=== PATIENT | female | born 1960 | race Caucasian/White ===

== ENCOUNTER 2017-11-08 01:11 | Emergency (ER) | payer BC ==
--- NOTE | 2017-11-08 01:37 | EDM.PDOC ---
ED HPI GENERAL MEDICAL PROBLEM - General Chief Complaint: Abdominal Pain Stated Complaint: RIGHT SIDE PAIN Time Seen by Provider: 11/08/17 01:36 - History of Present Illness INITIAL COMMENTS - FREE TEXT/NARRATIVE: HISTORY AND PHYSICAL: History of present illness: The patient is a 49-year-old female with a history of hypertension and a history of one prior kidney stone that required surgical removal and who presents with complaints of right-sided abdominal and right flank pain that started 2 hours ago associated with nausea. Patient states that she had a completely normal day yesterday with no systemic complaints and the pain came on suddenly and it was in her right side of her abdomen and right flank area. It is coming and going in intensity and is associated with the nausea but no vomiting or diarrhea. She has no hematuria dysuria frequency no fevers and took no medications prior to coming here. She says it does feel similar to her prior kidney stone but this came on more suddenly than the one in the past. The patient does not live here locally and is visiting family. Patient did not take any medication for pain or nausea prior to coming to the ER Review of systems: As per history of present illness and below otherwise all systems reviewed and negative. Past medical history: As per history of present illness and as reviewed below otherwise noncontributory. Surgical history: As per history of present illness and as reviewed below otherwise noncontributory. Social history: No reported history of drug or alcohol abuse. Family history: As per history of present illness and as reviewed below otherwise noncontributory. Physical exam: Gen.: Well-developed well-nourished female who is nontoxic but looks somewhat uncomfortable in the room. She is able to move easily without distress and vital signs have been reviewed by me HEENT: Atraumatic, normocephalic, negative for conjunctival pallor or scleral icterus, mucous membranes moist, throat clear, neck supple, nontender, trachea midline. Lungs: Clear to auscultation, breath sounds equal bilaterally, chest nontender. Heart: S1S2, regular rate and rhythm no overt murmurs Abdomen: Soft, nondistended, nontender. On palpation I'm unable to reproduce the pain on the right side and bowel sounds are slightly hypoactive. Is no rebound or guarding Negative for masses or hepatosplenomegaly. Negative for costovertebral tenderness. Pelvis: Stable nontender. Genitourinary: Deferred. Rectal: Deferred. Extremities: Atraumatic, negative for cords or calf pain. Neurovascular unremarkable. Neuro: Awake, alert, oriented. Cranial nerves II through XII unremarkable. Cerebellum unremarkable. Motor and sensory unremarkable throughout. Exam nonfocal. Diagnostics: CBC CMP UA urine culture CT scan of the abdomen and pelvis Therapeutics: IV fluids Toradol Zofran Dilaudid Flomax Cipro Patient feels much improved and I discussed all testing results with the patient and at bedside. She is aware of the other kidney stones are present in bilateral kidneys As the patient does not live here we will give her copy of the CAT scan on disc so she can follow-up with her urologist at home. I will give her a dose of Flomax and Cipro here. She would like [facility] for the Varney and prescriptions for the remainder of the medications I'm going to give her. I will give her urine strainers and have advised on reasons to return to the ED and necessitated need for follow-up with a urologist either here or at home. Impression: Right ureterolithiasis Definitive disposition and diagnosis as appropriate pending reevaluation and review of above. abdominal pain Pain Score (Numeric/FACES): 7 - Related Data Allergies Allergy/AdvReac Type Severity Reaction Status Date / Time sulfamethoxazole Allergy Hives Verified 11/08/17 01:30 [From ] trimethoprim [From ] Allergy Hives Verified 11/08/17 01:30 Home Meds: Home Meds Metoprolol Succinate 1 tab PO DAILY 11/08/17 [History] Multivitamin [Multivitamins] 1 each PO DAILY 11/08/17 [History] Past Medical History HEENT History: Reports: None Cardiovascular History: Reports: Hypertension Respiratory History: Reports: None Gastrointestinal History: Reports: None Genitourinary History: Reports: Renal Calculus [employer] History: Reports: Musculoskeletal History: Reports: None Neurological History: Reports: None Psychiatric History: Reports: None Endocrine/Metabolic History: Reports: None Hematologic History: Reports: None Immunologic History: Reports: None Oncologic (Cancer) History: Reports: None Dermatologic History: Reports: None - Infectious Disease History Infectious Disease History: Reports: Chicken Pox - Past Surgical History Head Surgeries/Procedures: Reports: None Female Surgical History: Reports: Hysterectomy Social & Family History - Family History Family Medical History: Noncontributory - Tobacco Use Smoking Status *Q: Never Smoker - Caffeine Use Caffeine Use: Reports: Soda - Recreational Drug Use Recreational Drug Use: No ED ROS GENERAL - Review of Systems Review Of Systems: ROS reveals no pertinent complaints other than HPI. ED EXAM, GENERAL - Physical Exam Exam: See Below (See dictation) Course - Vital Signs Last Recorded V/S: Last Vital Signs Temp 36.4 C 11/08/17 01:31 Pulse 85 11/08/17 01:31 Resp 18 11/08/17 01:31 BP 170/85 H 11/08/17 01:31 Pulse Ox 98 11/08/17 01:31 - Orders/Labs/Meds Orders: Active Orders 24 hr Category Date Time Status Communication Order [RC] STAT Care 11/08/17 03:51 Ordered Abdomen Pelvis wo Cont [CT] Stat Exams 11/08/17 01:43 Taken CULTURE URINE [RM] Stat Lab 11/08/17 01:45 Received Ciprofloxacin [Ciprofloxacin HCl] Med 11/08/17 03:50 Once 500 mg PO ONETIME ONE Sodium Chloride 0.9% [Saline Flush] Med 11/08/17 01:43 Active 10 ml FLUSH ASDIRECTED PRN Sodium Chloride 0.9% [Saline Flush] Med 11/08/17 01:43 Active 2.5 ml FLUSH ASDIRECTED PRN Tamsulosin [Flomax] Med 11/08/17 03:50 Once 0.4 mg PO ONETIME ONE Saline Lock Insert [OM.PC] Stat Oth 11/08/17 01:43 Ordered Medication Orders Ciprofloxacin (Ciprofloxacin Hcl) 500 mg PO ONETIME ONE Stop: 11/08/17 03:51 Sodium Chloride (Saline Flush) 10 ml FLUSH ASDIRECTED PRN PRN Reason: Keep Vein Open Sodium Chloride (Saline Flush) 2.5 ml FLUSH ASDIRECTED PRN PRN Reason: Keep Vein Open Tamsulosin HCl (Flomax) 0.4 mg PO ONETIME ONE Stop: 11/08/17 03:51 Labs: Laboratory Tests 11/08/17 11/08/17 11/08/17 Range/Units 01:45 01:52 01:52 WBC 9.66 (4.0-11.0) K/uL RBC 4.42 (4.30-5.90) M/uL Hgb 13.9 (12.0-16.0) g/dL Hct 39.9 (36.0-46.0) % MCV 90.3 (80.0-98.0) fL MCH 31.4 (27.0-32.0) pg MCHC 34.8 (31.0-37.0) g/dL RDW Std Deviation 42.2 (28.0-62.0) fl RDW Coeff of Lila 13 (11.0-15.0) % Plt Count 186 (150-400) K/uL MPV 10.40 (7.40-12.00) fL Neut % (Auto) 60.9 (48.0-80.0) % Lymph % (Auto) 28.6 (16.0-40.0) % [place] % (Auto) 8.1 (0.0-15.0) % Eos % (Auto) 1.9 (0.0-7.0) % Baso % (Auto) 0.5 (0.0-1.5) % Neut # (Auto) 5.9 H (1.4-5.7) K/uL Lymph # (Auto) 2.8 H (0.6-2.4) K/uL [place] # (Auto) 0.8 (0.0-0.8) K/uL Eos # (Auto) 0.2 (0.0-0.7) K/uL Baso # (Auto) 0.1 (0.0-0.1) K/uL Nucleated RBC % 0.0 /100WBC Nucleated RBCs # 0 K/uL Sodium 144 (136-146) mmol/L Potassium 3.4 L (3.5-5.1) mmol/L Chloride 108 (98-110) mmol/L Carbon Dioxide 23 (21-31) mmol/L BUN 18 (6.0-23.0) mg/dL Creatinine 1.0 (0.6-1.5) mg/dL Est Cr Clr Drug Dosing 52.95 mL/min Estimated GFR (MDRD) 56.9 ml/min Glucose 132 H (60-110) mg/dL Calcium 9.9 (8.8-10.8) mg/dL Total Bilirubin 0.5 (0.1-1.5) mg/dL AST 16 (5-40) IU/L ALT 19 (8-54) IU/L Alkaline Phosphatase 87 (40-150) Total Protein 7.1 (6.0-8.0) g/dL Albumin 4.3 (3.5-5.0) g/dL Globulin 2.8 (2.0-3.5) g/dL Albumin/Globulin Ratio 1.5 (1.3-2.8) Urine Color YELLOW Urine Appearance HAZY Urine pH 6.0 (5.0-8.0) Ur Specific [place] 1.025 (1.001-1.035) Urine Protein NEGATIVE (NEGATIVE) mg/dL Urine Glucose (UA) NEGATIVE (NEGATIVE) mg/dL Urine Ketones NEGATIVE (NEGATIVE) mg/dL Urine Occult Blood TRACE-INTACT (NEGATIVE) Urine Nitrite NEGATIVE (NEGATIVE) Urine Bilirubin NEGATIVE (NEGATIVE) Urine Urobilinogen 0.2 (<2.0) EU/dL Ur Leukocyte Esterase MODERATE (NEGATIVE) Urine RBC 1-2 (0-2/HPF) Urine WBC 8-10 (0-5/HPF) Ur Epithelial Cells FEW (NONE-FEW) Urine Bacteria FEW (NEGATIVE) Meds: Medications Generic Name Dose Route Start Last Admin Trade Name Stevenq PRN Reason Stop Dose Admin Ciprofloxacin 500 mg 11/08/17 03:50 Ciprofloxacin Hcl PO 11/08/17 03:51 ONETIME ONE Sodium Chloride 10 ml 11/08/17 01:43 Saline Flush FLUSH ASDIRECTED PRN Keep Vein Open Sodium Chloride 2.5 ml 11/08/17 01:43 Saline Flush FLUSH ASDIRECTED PRN Keep Vein Open Tamsulosin HCl 0.4 mg 11/08/17 03:50 Flomax PO 11/08/17 03:51 ONETIME ONE Discontinued Medications Generic Name Dose Route Start Last Admin Trade Name Stevenq PRN Reason Stop Dose Admin Hydromorphone HCl 0.5 mg 11/08/17 01:43 11/08/17 01:55 Dilaudid IVPUSH 11/08/17 01:44 0.5 mg ONETIME ONE Administration Sodium Chloride 1,000 mls @ 999 mls/hr 11/08/17 01:43 11/08/17 01:54 Normal Saline IV 11/08/17 02:43 999 mls/hr STAT ONE Administration Ketorolac Tromethamine 30 mg 11/08/17 01:43 11/08/17 01:55 Toradol IVPUSH 11/08/17 01:44 30 mg ONETIME ONE Administration Ondansetron HCl 4 mg 11/08/17 01:43 11/08/17 01:55 Zofran IVPUSH 11/08/17 01:44 4 mg ONETIME ONE Administration Departure - Departure Time of Disposition: 03:53 Disposition: Home, Self-Care 01 Condition: Good Clinical Impression: Ureterolithiasis - Discharge Information Referrals: PCP,None [Primary Care Provider] - Forms: ED Department Discharge Additional Instructions: The following information is given to patients seen in the emergency department who are being discharged to home. This information is to outline your options for follow-up care. We provide all patients seen in our emergency department with a follow-up referral. The need for follow-up, as well as the timing and circumstances, are variable depending upon the specifics of your emergency department visit. If you don't have a primary care physician on staff, we will provide you with a referral. We always advise you to contact your personal physician following an emergency department visit to inform them of the circumstance of the visit and for follow-up with them and/or the need for any referrals to a consulting specialist. The emergency department will also refer you to a specialist when appropriate. This referral assures that you have the opportunity for followup care with a specialist. All of these measure are taken in an effort to provide you with optimal care, which includes your followup. Under all circumstances we always encourage you to contact your private physician who remains a resource for coordinating your care. When calling for followup care, please make the office aware that this follow-up is from your recent emergency room visit. If for any reason you are refused follow-up, please contact the emergency department at and ask to speak to the emergency department charge nurse. [facility] Specialty Care-Urology [address] [place] [id number] [facility] Primary care- Internal Medicine and Family [address] [id number] Please push hydration and take all medications as prescribed, Cipro Zofran and Flomax. You have been given written prescriptions for these per your request and you have been given a prescription via [employer] for Varney for pain to use as needed. Strain all urine and return to ER as needed and as discussed. These schedule a follow-up with your urologist at home or our urologist here in the next few days for reevaluation and further care. - My Orders Last 24 Hours: My Active Orders 11/08/17 01:43 Abdomen Pelvis wo Cont [CT] Stat Sodium Chloride 0.9% [Saline Flush] 10 ml FLUSH ASDIRECTED PRN Sodium Chloride 0.9% [Saline Flush] 2.5 ml FLUSH ASDIRECTED PRN Saline Lock Insert [OM.PC] Stat 11/08/17 01:45 CULTURE URINE [RM] Stat 11/08/17 03:50 Ciprofloxacin [Ciprofloxacin HCl] 500 mg PO ONETIME ONE Tamsulosin [Flomax] 0.4 mg PO ONETIME ONE 11/08/17 03:51 Communication Order [RC] STAT - Assessment/Plan Last 24 Hours: My Active Orders 11/08/17 01:43 Abdomen Pelvis wo Cont [CT] Stat Sodium Chloride 0.9% [Saline Flush] 10 ml FLUSH ASDIRECTED PRN Sodium Chloride 0.9% [Saline Flush] 2.5 ml FLUSH ASDIRECTED PRN Saline Lock Insert [OM.PC] Stat 11/08/17 01:45 CULTURE URINE [RM] Stat 11/08/17 03:50 Ciprofloxacin [Ciprofloxacin HCl] 500 mg PO ONETIME ONE Tamsulosin [Flomax] 0.4 mg PO ONETIME ONE 11/08/17 03:51 Communication Order [RC] STAT
[2017-11-08] MEDS ORDERED: Sodium Chloride 0.9% 10 ML Syringe FLUSH PRN (01:43)
[2017-11-08] MEDS ORDERED: Ondansetron 4 MG/2 ML SDV IVPUSH ONE (01:43)
[2017-11-08] MEDS ORDERED: HYDROmorphone 2 MG/ML Syringe IVPUSH ONE (01:43)
[2017-11-08] MEDS ORDERED: Sodium Chloride 0.9% 1,000 ML IV ONE (01:43)
[2017-11-08] MEDS ORDERED: Sodium Chloride 0.9% 2.5 ML Syringe FLUSH PRN (01:43)
[2017-11-08] MEDS ORDERED: Ketorolac 30 MG/ML SDV IVPUSH ONE (01:43)
[2017-11-08] MEDS ORDERED: Ciprofloxacin 500 MG Tab PO ONE (03:50)
[2017-11-08] MEDS ORDERED: Tamsulosin 0.4 MG Cap.ER PO ONE (03:50)
--- NOTE | 2017-11-08 11:41 | CT ---
EXAM DATE: 11/08/17 PATIENT'S AGE: 57 Patient: VADIM RENE Facility: [place], [place] Site . Site : 1960 Study: CT Abdomen/Pelvis [id number]/13/2017 2:57:16 AM Ordering Physician: Aziza Fuentes Final Report: INDICATION: Right-sided abdominal pain. History of hysterectomy approximately 10 years ago. TECHNIQUE: CT abdomen and pelvis without contrast. COMPARISON: None. FINDINGS: Lower chest: Unremarkable. Liver: Unremarkable. Spleen: Unremarkable. Pancreas: Unremarkable. Gallbladder and bile ducts: Unremarkable. Adrenal glands: Unremarkable. Kidneys: Bilateral renal calculi. Mild dilatation of right ureter, extending to possible right distal ureteral calculus measuring 3 millimeters on series 201, image 114 CT GI tract: Unremarkable. Appendix not identified. Multiple surgical clips the right lower abdominal quadrant. Mild degree of sigmoid diverticulosis. No acute inflammatory changes involving the large bowel. Vascular structures: Limited evaluation without IV contrast. No abdominal aortic aneurysm. Lymph nodes: Unremarkable. Miscellaneous: Unremarkable. No free air or significant free fluid. Pelvic Organs: Uterus surgically absent. Bladder unremarkable. No pelvic lymphadenopathy or free fluid. Bones: Severe degenerative disc disease at L5-S1. IMPRESSION: 1. Bilateral nephrolithiasis with distal right ureteral calculus, estimated size 3 millimeters, visualized on coronal reformat series 203, image 60. 2. Mild dilatation of the right ureter to the level of distal right ureteral calculus. 3. No obstructing left ureteral calculus. Dictated by Paul Christy MD @ 11/08/2017 3:27:19 AM Dictated by: Paul Christy MD @ 11/08/2017 03:27:25 (Electronic Signature) Report Signed by Proxy. [facility]
== END 2017-11-08 04:08 | disposition home or self-care (01) ==
LOC: MW.ED 01:11
DX: N20.2 Calculus of kidney with calculus of ureter (principal); I10 Essential (primary) hypertension; Z88.2 Allergy status to sulfonamides; Z88.1 Allergy status to other antibiotic agents; Z79.899 Other long term (current) drug therapy; Z90.710 Acquired absence of both cervix and uterus
CPT/HCPCS: 36415; 74176; 80053; 81001; 85025; 87086; 96361; 96374; 96375; 99284; A9270; J1170; J1885; J2405; J7040